=== PATIENT | male | born 1955 | race African-American/Black ===

== ENCOUNTER → 2017-01-11 | Day surgery (SDC) | payer MEDICARE, OTHER ==
[~2017-01-11] MED LIST: ALBUTEROL17 GM INH; ASPIRIN PO; ASPIRIN81 M2 PO; CENTRUM PO; CHLORTHALIDONE25 M1 PO; FLEXERIL10 MG PO; GLIPIZIDE5 MG/BOTT1 PO; GLUCOTROL XL5 M1 PO; HYDROCODON-ACE1 EAC9 PO; LIORESAL10 MG PO; LIPITOR20 MG PO; METFORMIN HCL1000 M2 PO; MILK OF MAGNESIA PO; MOBIC PO; MULTI-DAY VITA1 EACH PO; NATURAL VITA400 UNI3 PO; PRADAXA75 MG PO; PRINIVIL20 M1 PO; TOPROL XL PO
--- NOTE | ~2017-01-11 | OR ---
Unit #: [id number] #: [id number] Patient: LANA ARGUELLO [id number] [address] [place], [place] [address] [id number] O MR#: [id number] NAME: LANA ARGUELLO ROOM: Date of Procedure: 01/11/2017 Admission Date: 01/11/2017 Surgeon: Bipin Browne M.D. : 1955 Attending Physician: Bipin Browne M.D. Primary Care Physician: No Primary Care Physician PROCEDURE OPERATIVE NOTE PREOPERATIVE DIAGNOSIS 1. Low back pain, radiculopathy, spinal stenosis, degenerative disk spine disease. 2. Neck pain, cervical radiculopathy, cervical spinal stenosis, degenerative disk facet disease. POSTOPERATIVE DIAGNOSIS 1. Low back pain, radiculopathy, spinal stenosis, degenerative disk spine disease. 2. Neck pain, cervical radiculopathy, cervical spinal stenosis, degenerative disk facet disease. PROCEDURE PERFORMED 1. Lumbar epidural steroid injection with intravenous sedation, fluoroscopic guidance for needle localization. 2. Cervical epidural steroid injection, fluoroscopic guidance for needle localization. HISTORY The patient is a 61-year-old male with previously mentioned diagnoses, now has failed conservative medical management. Symptom complex is consistent with radicular irrigation posterior cervical lumbar spine so the plan is for a trial of epidural steroids, the risks and benefits of which have been reviewed. ANESTHESIA Versed 2 mg and local. PROCEDURE The patient was placed in the seated position. Standard monitors were applied. Versed 2 mg was given for sedation and anxiolysis. Vitals remained stable. Sterile prep and drape then of the lumbar area was performed. The skin at the L4-L5 level was localized with 1% lidocaine. An 18-gauge S[employer] needle was then advanced via loss of resistance technique and fluoroscopic guidance in toward the epidural space. The patient did not complain of pain or paresthesia during needle advancement. After confirming proper positioning with fluoroscopy and radiographic contrast, 80 mg of Depo-Medrol and 4 cc of 0.125% bupivacaine were deposited. The patient tolerated the procedure well. Second procedure, cervical epidural steroid injection with fluoroscopic guidance. A second set was used to sterilely prep and drape the patient's cervical spine. The skin at the C5-C6 level was localized with 1% Unit #: [id number] #: [id number] Patient: LANA ARGUELLO. An 18-gauge SRL Global needle was then advanced via loss of resistance technique and fluoroscopic guidance in toward the epidural space. The patient did not complain of pain or paresthesias during the needle advancement. After confirming the proper needle positioning with fluoroscopy and radiographic contrast a dose of 80 mg of Depo-Medrol and 2 cc of 0.25% bupivacaine were deposited. The patient tolerated this part of the procedure well also and was discharged to the recovery room in stable condition. Dictated by... Kandi Escamilla/gz TD: 01/11/2017 13:36 JOB #: [id number] CC: Bipin Browne M.D. PROCEDURE OPERATIVE NOTE Page 1 of 1 X Bipin Browne MD X PROCEDURE OPERATIVE NOTE
== END | disposition home or self-care (01) ==
LOC: CCSC 09:25
DX: M51.16 Intervertebral disc disorders with radiculopathy, lumbar region (principal); M50.10 Cervical disc disorder with radiculopathy, unspecified cervical region; M48.06 Spinal stenosis, lumbar region; M48.02 Spinal stenosis, cervical region; E11.9 Type 2 diabetes mellitus without complications; I10 Essential (primary) hypertension
CPT/HCPCS: 82947; J1040; J2250

== ENCOUNTER → 2017-01-25 | Day surgery (SDC) | payer MEDICARE, OTHER ==
--- NOTE | ~2017-01-25 | OR ---
Unit #: [id number] #: [id number] Patient: LANA ARGUELLO [id number] [address] [place], [place] [address] [id number] O MR#: [id number] NAME: LANA ARGUELLO ROOM: Date of Procedure: 01/25/2017 Admission Date: 01/25/2017 Surgeon: Bipin Browne M.D. : 1955 Attending Physician: Bipin Browne M.D. OPERATIVE REPORT JOB NOTE: CC: [facility] PREOPERATIVE DIAGNOSES 1. Low back pain, radiculopathy, degenerative disk disease, lumbar spinal stenosis. 2. Neck pain, cervical radiculopathy, degenerative cervical disk disease, cervical spinal stenosis. POSTOPERATIVE DIAGNOSES 1. Low back pain, radiculopathy, degenerative disk disease, lumbar spinal stenosis. 2. Neck pain, cervical radiculopathy, degenerative cervical disk disease, cervical spinal stenosis. PROCEDURES PERFORMED 1. Lumbar epidural steroid injection with intravenous sedation and fluoroscopic guidance for needle localization. 2. Cervical epidural steroid injection with fluoroscopic guidance for needle localization. INDICATIONS FOR PROCEDURE The patient is a 61-year-old male with back and right lower extremity radicular pain, neck and right upper extremity radicular pain. He failed to settle with conservative treatment including medications and rehab. He is not a surgical candidate. Decision was made to give a trial of an epidural steroid injection. Initial injection resulted about 25% reduction in his back, in his legs, his neck, and his arm, both of which maintained over the course of 2 weeks. Based on his good partial initial response, his pathology, and symptomatology, we are going to proceed with a second injection today. DESCRIPTION OF PROCEDURE The patient was placed in a seated position. Standard monitors were applied. 2 mg of Versed were given for sedation and anxiolysis, which were adequate. Vital signs remained stable. Sterile prep and drape then of the lumbar area was performed. The skin at the L4-L5 level was localized with 1% lidocaine. An 18-gauge [employer] needle was then advanced via loss of resistance technique and fluoroscopic guidance in toward the epidural space. After confirming proper positioning with fluoroscopy and radiographic contrast, 80 mg of Depo-Medrol and 4 mL of 0.125% bupivacaine were deposited. The patient tolerated this part of procedure well. A separate kit was then used to sterilely prep and drape the patient's Unit #: [id number] #: [id number] Patient: LANA ARGUELLO cervical spine. The skin then at the C6-C7 level was localized with 1% lidocaine. An 18-gauge [employer] needle was then advanced via hanging drop technique and fluoroscopic guidance in toward the epidural space. After confirming proper positioning with fluoroscopy and radiographic contrast, 80 mg of Depo-Medrol and 2 mL of 0.25% bupivacaine were deposited. The patient tolerated the procedure otherwise well and was discharged to the recovery room in stable condition. Dictated by... Kandi Escamilla/mani TD: 01/26/2017 01:38 JOB #: [id number] OPERATIVE REPORT Page 1 of 1 X Bipin Browne MD X PROCEDURE OPERATIVE NOTE
== END | disposition home or self-care (01) ==
LOC: CCSC 08:17
DX: M50.11 Cervical disc disorder with radiculopathy, high cervical region (principal); M48.02 Spinal stenosis, cervical region; M51.16 Intervertebral disc disorders with radiculopathy, lumbar region; M48.06 Spinal stenosis, lumbar region; I10 Essential (primary) hypertension
CPT/HCPCS: 82947; J1040; J2250